=== PATIENT | male | born 1975 | race Caucasian/White ===

== ENCOUNTER 2018-03-04 23:24 | Emergency (ER) | payer OTHER ==
[2018-03-05] MEDS: KETOROLAC 30 MG INJ IM (00:01)
== END 2018-03-05 01:13 | disposition home or self-care (01) ==
LOC: E/R 23:24
DX: S16.1XXA Strain of muscle, fascia and tendon at neck level, initial encounter (principal); S33.5XXA Sprain of ligaments of lumbar spine, initial encounter; F11.10 Opioid abuse, uncomplicated; F17.210 Nicotine dependence, cigarettes, uncomplicated; V53 Occupant of pick-up truck or van injured in collision with car, pick-up truck or van; Z95.0 Presence of cardiac pacemaker
CPT/HCPCS: 71045; 96372; 99284-25